=== PATIENT | male | born 1965 | race Caucasian/White ===

== ENCOUNTER → 2017-01-09 | Outpatient (CLI) | payer OTHER ==
[~2017-01-09] MED LIST: ALBUTEROL17 GM INH; ALL DAY ALLERGY10 M3; AZITHROMYCIN250 MG PO; CIPRO PO; DOXYCYCLINE HY100 M1 PO; EPIPEN0.3 MG/0.1 IM; FLEXERIL10 M1 PO; FLEXERIL10 MG PO; KEFLEX500 M1 PO; MEDROL DOSEPAK4 MG PO; MEDROL4 MG/DOSE- PO; METFORMIN HCL500 M1 PO; METHADONE PO; NAPROSYN500 MG PO; NASAL SPRAY; NO MEDICATIONS; PREDNISONE PO; PROAIR HFA8.5 GM IH; TAVIST; VIBRAMYCIN100 M1 PO; VICODIN 5/500 T1 TAB PO; VOLTAREN75 MG PO; ZANTAC150 MG PO
[2017-01-09 11:50] LABS: CHOLESTEROL 166 mg/dL (0-200); HDL CHOLESTEROL 48 mg/dL (29-75); LDL CHOLESTEROL 101 mg/dL (-130); LDL/HDL RATIO 2 RATIO (0-4); TRIGLYCERIDES 87 mg/dL (10-160)
== END | disposition home or self-care (01) ==
LOC: CLAB 10:51
PROVIDERS: Internal Medicine Endocrinology, Diabetes & Metabolism
DX: E11.65 Type 2 diabetes mellitus with hyperglycemia (principal)
CPT/HCPCS: 36415; 80061; 83036